=== PATIENT | male | born 1970 | race African-American/Black ===

== ENCOUNTER 2017-03-27 16:20 | Outpatient (CLI) | payer BC ==
[2016-02-19 17:16] VITALS: BP 150/100
[2017-03-27 17:05] LABS: MEAN CORPUSCULAR HEMOGLOBIN 30.1 pg (28.0-34.0); MEAN CORPUSCULAR VOLUME 84.6 fl (80.0-100.0)
[2017-03-27 17:31] LABS: BASOPHILS % 2 % (0-2); MONOCYTES % 3 % (0-11); SEGMENTED NEUTROPHILS % 66 % (39-79)
== END 2017-03-27 16:22 ==
LOC: LAB 16:20
PROVIDERS: ATTEND Physician Assistant
DX: R53.83 Other fatigue (principal)
CPT/HCPCS: 36415; 85025

== ENCOUNTER 2017-09-11 09:53 | Outpatient (CLI) | payer BC ==
[2016-02-19 17:16] VITALS: BP 150/100
== END 2017-09-11 09:54 ==
LOC: OUT 09:53
PROVIDERS: ATTEND Colon & Rectal Surgery
DX: R10.32 Left lower quadrant pain (principal); K46.9 Unspecified abdominal hernia without obstruction or gangrene
CPT/HCPCS: 99213

== ENCOUNTER 2017-12-02 10:47 | Outpatient (CLI) | payer BC ==
[2016-02-19 17:16] VITALS: BP 150/100
[2017-12-02 12:00] LABS: MEAN CORPUSCULAR HEMOGLOBIN 30.1 pg (28.0-34.0); MEAN CORPUSCULAR VOLUME 88.5 fl (80.0-100.0)
[2017-12-02 12:57] LABS: eGFR (African) > 60; eGFR (Non-African) > 60
[2017-12-02 13:21] LABS: SEGMENTED NEUTROPHILS % 65 % (39-79)
[2017-12-02 13:22] LABS: BASOPHILS % 1 % (0-2); EOSINOPHILS % 2 % (0-7); MONOCYTES % 6 % (0-11)
== END 2017-12-02 10:50 ==
LOC: LAB 10:47
PROVIDERS: ATTEND Physician Assistant
DX: R42 Dizziness and giddiness (principal); R53.83 Other fatigue; R63.4 Abnormal weight loss; Z86.19 Personal history of other infectious and parasitic diseases
CPT/HCPCS: 36415; 80053; 84439; 84443; 84481; 85025; 87338

== ENCOUNTER 2018-02-16 10:48 | Emergency (ER) | payer BC, OTHER ==
[2018-02-16] MEDS ORDERED: ONDANSETRON HCL/PF 4 MG/ 2ML VIAL IVP ONE ×2 (11:03→12:21)
--- NOTE | 2018-02-16 11:10 | ED Physician Documentation ---
General Adult - HISTORIAN Historian: patient, spouse, other (Dr. Suarez) - HPI Stated Complaint: vomiting, dizzy Chief Complaint: General Adult Additional Information: Sent by Dr. Suarez from clinic. Said to have lots of stressors in his life. Last night at about 2250, pt got up from bed, was dizzy, vomited, and fell to floor "flopping around like a fish," and hit his head on doorway. Was "breathing heavily." No LOC. Episode lasted about 5 minutes. EMS was called, but pt refused transport. He walked around a bit, and has felt dizzy and been vomiting since. Never had similar musculoskeletal behaviors in the past. Has had dizziness before. Has not been walking about this am 2/2 dizziness. Doesn't know when he urinated last. No food since yesterday evening? No fevers. HX anxiety and panic attacks. No other modifying factors or associated signs. - ROS CONST: denies: fever GI/: vomiting NEURO/PSYCH: dizziness - PAST HX Past History: other Allergies/Adverse Reactions: Allergies Allergy/AdvReac Type Severity Reaction Status Date / Time Penicillins AdvReac Face Verified 02/19/16 11:35 Swelling Home Medications: Ambulatory Orders Medication Instructions Recorded Prazosin HCl 2 mg PO DAILY av 03/27/17 - SOCIAL HX Smoking History: non-smoker (except marijuana) Alcohol Use: none Drug Use: marijuana - FAMILY HX Family History: No ( doesn't know) - VITAL SIGNS Vital Signs: Vital Signs Temp Pulse Resp BP Pulse Ox 98.2 F 55 L 24 162/100 93 02/16/18 11:00 02/16/18 11:00 02/16/18 11:00 02/16/18 11:00 02/16/18 11:00 - REVIEWED ASSESSMENTS Nursing Assessment Reviewed: Yes Vitals Reviewed: Yes Progress - Results/Orders Results/Orders: pt better after Meclizine and 4 mg Zofran x2. Wants to go home. Head CT w not done as there is a policy that such will not be done when pt has a head injury. 1348, discussed with Dr. Suarez. Home. - Progress Progress: Report Submission Date: Feb 16, 2018 12:11:07 PM CDT Patient Study Name: VERONICA STEVEN Date: Feb 16, 2018 11:39:40 AM CDT Modality Type: CT\\SR Gender: M Description: CT BRAIN W/O CONTRAST : 68 Institution: [facility] Physician: OBEY DEL ANGEL Examination: CT head without contrast History: VOMITING; DIZZINESS; FELL AND HIT HEAD LAST NIGHT (Hx) Comparison exam: None available Technique: Noncontrast head CT protocol. Findings: Ventricles and sulci are appropriate for patient age. Cerebrocerebellar parenchyma demonstrates normal attenuation. No evidence for parenchymal hemorrhage. No evidence for mass or mass effect. No midline shift. No extra axial fluid collections. Partial visualization of the paranasal sinuses, mastoid air cells, orbits, skull and scalp without gross irregularity. Streak artifact from dental hardware. Impression: No acute parenchymal process. No hemorrhage. Electronically signed on Feb 16, 2018 12:11:07 PM CDT by: Leonel Colin Report Submission Date: Feb 16, 2018 12:12:19 PM CDT Patient Study Name: VERONICA STEVEN Date: Feb 16, 2018 11:39:15 AM CDT Modality Type: DX Gender: M Description: CHEST : 68 Institution: [facility] Physician: OBEY DEL ANGEL DEMAR Examination: Portable chest History: Evaluate lungs Comparison exam: 07 September 2013 Findings: Single view of the chest demonstrates a normal cardiac and mediastinal silhouette. Elevated right hemidiaphragm. Lung johnson without focal infiltrate. No blunting of the costophrenic margins. Osseous structures are appropriate for age. Impression: No acute pulmonary process. Electronically signed on Feb 16, 2018 12:12:19 PM CDT by: Leonel Colin ED Results Lab/Radiology - Orders Orders: ED Orders Category Date Time Status Place IV Lock 1T Care 02/16/18 11:01 Ordered CHEST 1VIEW [RAD] Stat Exams 02/16/[address] BRAIN W & W/O CON Stat Exams 02/16/18 Ordered CBC/PLATELET/DIFF Routine Lab 02/16/18 Ordered CMP Routine Lab 02/16/18 Ordered PT-INR Routine Lab 02/16/18 Ordered URINALYSIS Routine Lab 02/16/18 Ordered Ondansetron HCl/Pf [Zofran 4 mg/2 ml] Med 02/16/18 11:03 Once 4 mg IVP NOW ONE General Adult Physical Exam - PHYSICAL EXAM GENERAL APPEARANCE: lies on stretcher on back with arm across forehead. quiet. EENT: ENT inspection normal, pharynx normal, MUNIRA (3 mm), TM's nml, nystagmus (right lateral gaze) NECK: normal inspection, supple RESPIRATORY: no resp distress, breath sounds normal CVS: reg rate & rhythm, heart sounds normal, no murmur ABDOMEN: soft, normal bowel sounds, no distension, non-tender BACK: normal inspection, other (no vertebral tenderness) SKIN: warm/dry, normal color EXTREMITIES: non-tender, normal range of motion, no evidence of injury NEURO: CN's nml as tested, motor nml, sensation nml, cognition normal, other (can dorsiflex 1st toes against resistance. Reflexes 2+ throughout. 4 cm diam fluctuant mass right occiput, non tender ( says its been there a long time)) Discharge Clincal Impression: Vertigo Referrals: Ivon Suarez MD [Primary Care Provider] - 2 Days Additional Instructions: Your laboratory test and brain CT were reassuring. Return to the ER immediately if you have unusual behavior or prolonged vomiting, or if your condition worsens. Follow up with Dr. Suarez as needed. Condition: Good Disposition: 01 HOME, SELF-CARE Decision to Admit: NO Decision Time: 13:48
[2018-02-16 11:26] LABS: MEAN CORPUSCULAR HEMOGLOBIN 29.7 pg (28.0-34.0); MEAN CORPUSCULAR VOLUME 86.3 fl (80.0-100.0)
[2018-02-16 11:32] LABS: eGFR (African) > 60; eGFR (Non-African) > 60
[2018-02-16 12:00] LABS: GIANT PLATELETS PRESENT (NEGATIVE); MONOCYTES % 4 % (0-11); SEGMENTED NEUTROPHILS % 83 % (39-79)
[2018-02-16] MEDS ORDERED: MECLIZINE HCL 25 MG TABLET PO ONE (12:21)
[2018-02-16 12:43] LABS: APPEARANCE,URINE CLEAR (CLEAR); COLOR,URINE YELLOW (YELLOW)
[2018-02-16 12:44] LABS: OCCULT BLOOD,URINE NEGATIVE (NEGATIVE); PH URINE 8.5 (5.0 - 8.0); UROBILINOGEN URINE 0.2 Eu (0.2-1.0)
[2018-02-16 14:10] VITALS: BP 142/90
--- NOTE | 2018-02-16 15:51 | Diagnostic Imaging Report ---
OBEY DEL ANGEL [facility] [address] [facility].[address] [address] Report Submission Date: Feb 16, 2018 12:12:19 PM CDT Patient Study Name: VERONICA STEVEN Date: Feb 16, 2018 11:39:15 AM CDT Modality Type: DX Gender: M Description: CHEST : 68 Institution: [facility] Physician: OBEY DEL ANGEL Examination: Portable chest History: Evaluate lungs Comparison exam: 07 September 2013 Findings: Single view of the chest demonstrates a normal cardiac and mediastinal silhouette. Elevated right hemidiaphragm. Lung johnson without focal infiltrate. No blunting of the costophrenic margins. Osseous structures are appropriate for age. Impression: No acute pulmonary process. Electronically signed on Feb 16, 2018 12:12:19 PM CDT by: Leonel FARMER
--- NOTE | 2018-02-16 16:55 | Diagnostic Imaging Report ---
OBEY DEL ANGEL [facility] [address] [facility] [address] [place] [address]. [address] Report Submission Date: Feb 16, 2018 12:11:07 PM CDT Patient Study Name: VERONICA STEVEN Date: Feb 16, 2018 11:39:40 AM CDT Modality Type: CT\SR Gender: M Description: CT BRAIN W/O CONTRAST : 68 Institution: [facility] Physician: OBEY DEL ANGEL Examination: CT head without contrast History: VOMITING; DIZZINESS; FELL AND HIT HEAD LAST NIGHT (Hx) Comparison exam: None available Technique: Noncontrast head CT protocol. Findings: Ventricles and sulci are appropriate for patient age. Cerebrocerebellar parenchyma demonstrates normal attenuation. No evidence for parenchymal hemorrhage. No evidence for mass or mass effect. No midline shift. No extra axial fluid collections. Partial visualization of the paranasal sinuses, mastoid air cells, orbits, skull and scalp without gross irregularity. Streak artifact from dental hardware. Impression: No acute parenchymal process. No hemorrhage. Electronically signed on Feb 16, 2018 12:11:07 PM CDT by: Leonel FARMER
== END 2018-02-16 14:08 | disposition home or self-care (01) ==
LOC: ED 10:48
DX: S09.90XA Unspecified injury of head, initial encounter (principal); R42 Dizziness and giddiness; R11.10 Vomiting, unspecified; W19.XXXA Unspecified fall, initial encounter; Y92.013 Bedroom of single-family (private) house as the place of occurrence of the external cause; Y93.9 Activity, unspecified; Y99.9 Unspecified external cause status
CPT/HCPCS: 70450; 71045; 80053; 81002; 85025; 85610; J2405; 96374; 96375; S1016

== ENCOUNTER 2019-01-12 19:51 | Emergency (ER) | payer SELFPAY ==
[2019-01-12] MEDS ORDERED: ONDANSETRON HCL/PF 4 MG/ 2ML VIAL IVP ONE (20:27)
[2019-01-12] MEDS ORDERED: 0.9 % SODIUM CHLORIDE 1,000 ML IV ONE (20:27)
--- NOTE | 2019-01-12 20:59 | ED Physician Documentation ---
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 Patient and police were out in the [place] looking for his son and patient feels that he got over heated and feels dehydrated. Timing: gradual onset Severity: moderate Associated Symptoms: nausea, headache, light headedness Decreased Ability to Stand/ Walk: walks w/o assistance Usually: walks w/o assistance Worsened By: changing position - ROS CONST: none EYES/ENT: none GI/: none MS/SKIN/LYMPH: none NEURO/PSYCH: none CVS/RESP: shortness of breath - PAST HX Past History: hypertension, other (GERD) Cardiac Disease: none Surgeries/Procedures: other (2 back surgeries, wisdom, ) Immunizations: UTD Allergies/Adverse Reactions: Allergies Allergy/AdvReac Type Severity Reaction Status Date / Time Penicillins AdvReac Face Verified 02/19/16 11:35 Swelling - SOCIAL HX Smoking History: less than 1 pack/day Alcohol Use: none Drug Use: marijuana - FAMILY HX Family History: none - VITAL SIGNS Vital Signs: Vital Signs Temp Pulse Resp BP Pulse Ox 75 20 127/101 96 01/12/19 19:52 01/12/19 19:52 01/12/19 19:52 01/12/19 19:52 - REVIEWED ASSESSMENTS Nursing Assessment Reviewed: Yes Vitals Reviewed: Yes Progress - Progress Progress: 21:20 Patient feeling better- sat and talked with patient about incident with his son and family dynamics- patient states he feels better after talking about it. ED Results Lab/Radiology - Orders Orders: ED Orders Category Date Time Status Continuous EKG monitoring Q30M Care 01/12/19 20:27 Active Continuous Pulse Oximetry Q30M Care 01/12/19 20:[address] IV Lock 1T Care 01/12/19 20:27 Active CBC/PLATELET/DIFF Routine Lab 01/12/19 20:32 Received CMP Routine Lab 01/12/19 20:32 Received 0.9 % Sodium Chloride [Normal Saline] 1,000 ml Med 01/12/19 20:27 Active IV Q1H Ondansetron HCl/Pf [Zofran] Med 01/12/19 20:27 Discontinued 4 mg IVP NOW ONE EKG WITH COMPARISON Stat Ther 01/12/19 20:27 Ordered Dizziness Physical Exam - Physical Exam General Appearance: mild distress EENT: eye inspection normal, ENT inspection normal, MUNIRA, dry mucous membranes Neck: normal inspection, supple Respiratory: breath sounds nml CVS: heart sounds normal, equal pulses Abdomen: soft, normal bowel sounds Skin: warm/dry, normal color Neuro: nml orientation, nml speech, nml cognition, mood/affect nml Extremities: non-tender, normal range of motion Cranial: nml as tested, no evidence of acute CVA Sensorimotor: motor nml, sensation nml Discharge Clincal Impression: Dehydration Referrals: Ivon Suarez MD [Primary Care Provider] - 2 Days Additional Instructions: Increase water intake Avoid long exposures in the heat May take Tylenol as needed for headaches or discomfort Follow up with PCP in 7-10 days for re-evaluation Condition: Good Disposition: 01 HOME, SELF-CARE Decision to Admit: NO Decision Time: 21:56
[2019-01-13 01:35] VITALS: BP 152/93
[2019-01-13 06:38] LABS: eGFR (Non-African) > 60
[2019-01-13 06:39] LABS: BASOPHILS % 0.5 % (0.0-1.5); NEUTROPHILS # 5.4 # k/uL (1.4-7.7)
== END 2019-01-12 21:56 | disposition home or self-care (01) ==
LOC: ED 19:51
DX: E86.0 Dehydration (principal)
CPT/HCPCS: 80053; 85025; 96360; 96372; 99284; J2405; J7030; S1016

== ENCOUNTER 2019-04-06 03:52 | Emergency (ER) | payer SELFPAY ==
[2019-04-06] MEDS ORDERED: PROMETHAZINE HCL 25 MG/ML VIAL ONE (04:14)
[2019-04-06] MEDS: PROMETHAZINE HCL 25 MG/ML VIAL IM PRN (04:25)
[2019-04-06] MEDS: 0.9 % SODIUM CHLORIDE 1,000 ML IV ONE ×4 (04:32→06:42)
--- NOTE | 2019-04-06 06:25 | ED Physician Documentation ---
Nausea/Vomiting/Diarrhea - HISTORIAN Historian: patient - HPI Stated Complaint: "i felt something pop in my stomach and i have been throwing up all day" Chief Complaint: Nausea,Vomiting,Diarrhea Onset: days ago (1) Duration: constant Timing: sudden onset Severity: mild Further Comments: yes (He reports no fever. No pain. He has no bad food intake. No sick contacts) - Associated Symptoms Vomiting: frequent Diarrhea: copious Abdominal Pain: none - ROS CONST: none - PAST HX Past History: other (Anxiety ) - SOCIAL HX Smoking History: non-smoker Alcohol Use: none Drug Use: none - FAMILY HX Family History: none - REVIEWED ASSESSMENTS Nursing Assessment Reviewed: Yes Vitals Reviewed: Yes <Britney Lopez - Last Filed: 04/06/19 07:02> <Yohana Hunt - Last Filed: 04/06/19 07:31> - PAST HX Allergies/Adverse Reactions: Allergies Allergy/AdvReac Type Severity Reaction Status Date / Time ibuprofen AdvReac Vomiting Verified 04/06/19 04:20 Penicillins AdvReac Face Verified 04/06/19 04:20 Swelling Home Medications: Ambulatory Orders Medication Instructions Recorded Esomeprazole Magnesium 20 mg PO DAILY 04/06/19 Ondansetron HCl Rapdis [Zofran Odt] 4 mg PO Q8 PRN #30 tab 04/06/19 - VITAL SIGNS Vital Signs: Vital Signs Temp Pulse Resp BP Pulse Ox 98.3 F 72 16 157/79 97 04/06/19 04:01 04/06/19 05:30 04/06/19 05:30 04/06/19 05:30 04/06/19 05:30 Progress <Britney Lopez - Last Filed: 04/06/19 07:02> <Yohana Hunt - Last Filed: 04/06/19 07:31> - Progress Progress: 0615: states nausea is starting to return DG 0703: report and care turned over to Nickie TOVAR DG (Britney Lopez) 0722 Patient states he is feeling better and wants to go home. Will discharge home with Zofran (Yohana Hunt) - Lab Results Lab Results: Lab Results 04/06/19 04/06/19 04/06/19 05:15 04:21 04:17 WBC 11.80 K/ul K/ul (4.00-12.00) RBC 5.65 M/ul H M/ul (3.90-5.20) Hgb 16.6 g/dL g/dL (12.0-18.0) Hct 50.1 % % (37.0-53.0) MCV 89.0 fl fl (80.0-100.0) MCH 29.5 pg pg (28.0-34.0) MCHC 33.2 g/dL g/dL (30.0-36.0) RDW 14.4 % H % (11.3-14.3) Plt Count 126 K/mm3 L K/mm3 (130-400) Neut % (Auto) 81.9 % H % (39.0-79.0) Lymph % (Auto) 13.5 % L % (16.0-50.0) Cuming % (Auto) 3.5 % % (0.0-11.0) Eos % (Auto) 0.7 % % (0.0-6.8) Baso % (Auto) 0.4 % % (0.0-1.5) Neut # (Auto) 9.4 # k/uL H # k/uL (1.4-7.7) Lymph # (Auto) 1.6 # k/uL # k/uL (0.6-4.0) Cuming # (Auto) 0.4 # k/uL # k/uL (0.0-0.9) Eos # (Auto) 0.1 # k/uL # k/uL (0.0-0.6) Baso # (Auto) 0.1 # k/uL # k/uL (0.0-0.5) Seg Neutrophils % 84 % H % (39-79) Lymphocytes % 12 % L % (16-50) Monocytes % 3 % % (0-11) Basophils % 1 % % (0-2) Large Platelets Present H (NEGATIVE) Giant Platelets Present H (NEGATIVE) Plt Morphology Comment Abnormal H (NORMAL) RBC Morph Comment Normal (NORMAL) Sodium 141 mmol/L mmol/L (137-145) Potassium 3.4 mmol/L L mmol/L (3.5-5.1) Chloride 102 mmol/L mmol/L (98-107) Carbon Dioxide 20 mmol/L L mmol/L (22-30) Anion Gap 22.4 BUN 17 mg/dL mg/dL (9-20) Creatinine 0.73 mg/dL mg/dL (0.66-1.25) Estimated Creat Clear 155 Est GFR ( Amer) > 60 (60 - ) Est GFR (Non-Af Amer) > 60 (60 - ) Glucose 121 mg/dL H mg/dL (74-106) Calcium 9.7 mg/dL mg/dL (8.4-10.2) Total Bilirubin 1.0 mg/dL mg/dL (0.2-1.3) AST 31 U/L U/L (15-46) ALT 25 U/L U/L (0-50) Alkaline Phosphatase 60 U/L U/L (38-126) Total Protein 8.2 g/dL g/dL (6.3-8.2) Albumin 4.6 g/dL g/dL (3.5-5.0) Urine Color Nichole (YELLOW) Urine Appearance Clear (CLEAR) Urine pH 6.0 (5.0 - 8.0) Ur Specific [place] 1.025 (1.010-1.030) Urine Protein 1+ mg/dL H mg/dL (NEGATIVE) Urine Ketones 4+ mg/dL H mg/dL (NEGATIVE) Urine Occult Blood Trace (NEGATIVE) Urine Nitrite Negative (NEGATIVE) Urine Bilirubin 1+ H (NEGATIVE) Urine Urobilinogen 0.2 Eu Eu (0.2-1.0) Ur Leukocyte Esterase Negative (NEGATIVE) Urine Glucose Negative mg/dL mg/dL (NEGATIVE) - Orders Orders: ED Orders Category Date Time Status CBC AUTO DIFF Routine Lab 04/06/19 04:21 Completed CBC PLATELETS NO DIFF Stat Lab 04/06/19 04:13 Uncollected CMP Routine Lab 04/06/19 04:17 Completed UA MACRO DIP ONLY Routine Lab 04/06/19 05:15 Completed UA W MICRO [UA W/MICRO IF INDICATED] Routine Lab 04/06/19 Uncollected 0.9 % Sodium Chloride [Normal Saline] Med 04/06/19 04:13 Discontinued 1,000 ml IV ONCE ONE 0.9 % Sodium Chloride [Normal Saline] Med 04/06/19 04:41 Discontinued 1,000 ml IV STAT STA 0.9 % Sodium Chloride [Normal Saline] 1,000 ml Med 04/06/19 04:13 Discontinued IV .STK-MED 0.9 % Sodium Chloride [Normal Saline] 1,000 ml Med 04/06/19 04:44 Discontinued IV .STK-MED 0.9 % Sodium Chloride [Normal Saline] 1,000 ml Med 04/06/19 06:23 Discontinued IV NOW 0.9 % Sodium Chloride [Normal Saline] 1,000 ml Med 04/06/19 04:00 Discontinued IV ONCE LORazepam [Ativan] Med 04/06/19 06:20 Discontinued 0.5 mg IV NOW ONE Pantoprazole Sodium [Protonix] 40 mg Med 04/06/19 06:21 Discontinued Sodium Chloride 0.9 % (Flush) [Normal Saline Flush] 10 ml IVP NOW Promethazine HCl [Phenergan] Med 04/06/19 04:10 Ordered 25 mg IM Q6 PRN Nausea Physical Exam - EXAM General Appearance: no acute distress, alert EENT: eye inspection normal, no signs of dehydration Neck: normal inspection Respiratory: no resp distress, chest non-tender, breath sounds normal CVS: reg rate & rhythm, heart sounds normal Abdomen: non-tender, abnml bowel sounds (hyperactive ). No: tenderness, guarding Back: non-tender Skin: warm/dry Extremities: non-tender, normal range of motion, no evidence of injury, no edema Neuro/Psych: oriented X3 <Britney Lopez - Last Filed: 04/06/19 07:02> Discharge <Britney Lopez - Last Filed: 04/06/19 07:02> Decision to Admit: NO Date of Decison to Admit: 04/06/19 Decision Time: 07:31 <Yohana Hunt - Last Filed: 04/06/19 07:31> Clincal Impression: Gastroenteritis Prescriptions: Ondansetron HCl Rapdis [Zofran Odt] 4 mg PO Q8 PRN #30 tab PRN Reason: nausea/vomiting Referrals: Ivon Suarez MD [Primary Care Provider] - 2 Days Additional Instructions: 1. Take Zofran every 8 hours as needed for nausea/vomiting 2. Tylenol and/or Ibuprofen as needed for pain/fever 3. Drink plenty of fluids to maintain proper hydration, gatorade, popsicles, juices. Avoid caffeine. 4. Follow up with PCP within 1 week 5. Return to ER for new or worsening symptoms Condition: Stable Disposition: 01 HOME, SELF-CARE
[2019-04-06] MEDS: LORazepam 2 MG/ML VIAL IV ONE (06:30)
[2019-04-06] MEDS: PANTOPRAZOLE SODIUM 40 MG in SODIUM CHLORIDE 0.9 % (FLUSH) 10 ML IVP ONE (06:31)
[2019-04-06 06:32] LABS: APPEARANCE,URINE CLEAR (CLEAR); COLOR,URINE AMBER (YELLOW)
[2019-04-06 06:33] LABS: OCCULT BLOOD,URINE TRACE (NEGATIVE); UROBILINOGEN URINE 0.2 Eu (0.2-1.0)
[2019-04-06] MEDS: NORMAL SALINE 500 ML IV.SOLN IV ONE (06:42)
[2019-04-06] MEDS: NORMAL SALINE 500 ML IV.SOLN IV STA (06:43)
[2019-04-06 07:07] LABS: BASOPHILS % 0.4 % (0.0-1.5); BASOPHILS % 1 % (0-2); GIANT PLATELETS PRESENT (NEGATIVE); NEUTROPHILS # 9.4 # k/uL (1.4-7.7); SEGMENTED NEUTROPHILS % 84 % (39-79)
[2019-04-06 07:08] LABS: eGFR (Non-African) > 60
[2019-04-06 08:11] VITALS: BP 139/75
== END 2019-04-06 07:50 | disposition home or self-care (01) ==
LOC: ED 03:52
DX: K52.9 Noninfective gastroenteritis and colitis, unspecified (principal)
CPT/HCPCS: 80053; 81002; 85025; 96361; 96372; 96374; 99283; 99285; J2060; J2550; J7030; S1016

== ENCOUNTER 2019-07-12 13:25 | Outpatient (CLI) | payer OTHER ==
--- NOTE | 2019-07-12 15:27 | Diagnostic Imaging Report ---
PATIENT MR#: [id number] PATIENT PATIENT NAME: VERONICA STEVEN DATE OF : 1970 REFERRING PHYSICIAN: Suzette Mackenzie EXAM DATE: 07/12/2019 ACCESSION NUMBER: [id number] EXAM DESCRIPTION: CT NECK SOFT TISSUE W/ HISTORY: Left neck discomfort. CT NECK WITH IV CONTRAST: 90 mL Omnipaque 350 were administered IV. Region of interest: Pain markers are placed at the left mandibular angle and left supraclavicular reg ion. This corresponds to the location of the left sternocleidomastoid muscle and left external jugular vein. Th e left external jugular vein is more prominent than the right. However, patency cannot be determined due to early pha se of contrast enhancement. Paranasal sinuses: Small bilateral maxillary mucus retention cysts. Oropharynx: Patent. Hypopharynx: Patent. Trachea: Midline and patent. Thyroid: No visible masses. Lymph nodes: No pathologic lymphadenopathy. Cervical spine: Degenerative disc disease at C5-6 and C6-7 produces moderate central canal stenosis. There is severe left and moderate right neural foraminal stenosis at C5-6 due to uncovertebral osteophytes. Lung apices: Clear. Right internal jugular vein: Patent Right carotid: Patent. Right vertebral: Patent. Left internal jugular vein: Patent. Left carotid: Patent. Left vertebral: Patent. IMPRESSION: The region of patient's discomfort corresponds to the left sternocleidomastoid muscle and left external jugular vein. If there is a palpable cord at this location, consider external jugular venous thrombos is in the differential. In the absence of palpable cord, discomfort may be caused by sternocleidomastoid strain . Read by: Dr. Mt Szymanski Transcribed by: Mt Szymanski Transcribed Date: 07/12/2019 3:25:54 PM Electronically signed by: Dr. Mt Szymanski Date signed: 07/12/2019 3:26:08 PM
== END 2019-07-12 13:35 ==
LOC: RAD 13:25
PROVIDERS: ATTEND Nurse Practitioner Family
DX: M79.9 Soft tissue disorder, unspecified (principal)
CPT/HCPCS: 70491; Q9967

== ENCOUNTER 2019-07-16 09:57 | Outpatient (CLI) | payer OTHER ==
--- NOTE | 2019-07-18 22:41 | Diagnostic Imaging Report ---
PATIENT MR#: [id number] PATIENT PATIENT NAME: VERONICA STEVEN DATE OF : 1970 REFERRING PHYSICIAN: Suzette Mackenzie EXAM DATE: 07/16/2019 ACCESSION NUMBER: [id number] EXAM DESCRIPTION: US THYROID SOFT TISS HEAD/NCK CLINICAL HISTORY: Left neck pain. TECHNIQUE: US soft tissue COMPARISON: CT neck July 12, 2019. Focused ultrasound was performed in the region of concern along the left neck. The underlying soft tissues appear normal. No cystic or solid masses were identified by the ultrasou nd technologist. There is no significant atherosclerotic plaque of the left carotid artery. The internal jugular vein appears patent. The external jugular vein was not specifically identified or evaluated by the senior technologist . IMPRESSION: Patent left internal jugular vein. The external jugular vein was not specifically identif ied by the senior technologist. However, no superficial thrombosis was visualized on the provided images. Th e exam may be repeated without charge to the patient, to evaluate the external jugular vein, if clinically indicate d. Read by: Dr. Mt Szymanski Transcribed by: Mt Szymanski Transcribed Date: 07/18/2019 10:41:00 PM Electronically signed by: Dr. Mt Szymanski Date signed: 07/18/2019 10:41:12 PM
== END 2019-07-16 10:07 ==
LOC: RAD 09:57
PROVIDERS: ATTEND Nurse Practitioner Family
DX: M54.2 Cervicalgia (principal)